=== PATIENT | female | born 1990 | race Caucasian/White ===

== ENCOUNTER 2018-02-13 21:31 | Emergency (ER) | payer OTHER ==
[~2018-02-13] VITALS: Ht 165.1 cm; Wt 61.3 kg
[~2018-02-13 21:31] MED LIST: LORAZEPAM1 MG PO; PERCOCET 5/31 TABLET PO; PROZAC20 MG PO; TYLENOL WITH C1 EACH PO
[2018-02-13 23:46] VITALS: BP 122/89
== END 2018-02-14 00:47 | disposition home or self-care (01) ==
LOC: EME 21:31
DX: S83.92XA Sprain of unspecified site of left knee, initial encounter (principal); X50.1XXA Overexertion from prolonged static or awkward postures, initial encounter; Y93.64 Activity, baseball; Z88.8 Allergy status to other drugs, medicaments and biological substances
CPT/HCPCS: 73564; 99281; 99284